=== PATIENT | male | born 1975 | race Caucasian/White ===

== ENCOUNTER 2018-12-28 16:33 | Emergency (ER) | payer MEDICAID ==
[2018-12-28] MEDS ORDERED: LIDOCAINE 2% 10 ML MDV SUBQ STA (16:50)
[2018-12-28] MEDS ORDERED: TETANUS/DIPHTHERIA/PERTUSSIS 0.5 ML SYRINGE IM ONE (17:09)
--- NOTE | 2018-12-28 17:16 | ED Physician Documentation ---
History of Present Illness - Stated complaint Stated Complaint: R RING FINGER INJURY - Chief complaint Chief Complaint: Wound - History obtained from History obtained from: Patient - History of Present Illness Timing: How many days ago (5) Pain level max: 7 Pain level now: 6 - Additonal information Additional information: R ring finger redness and swelling x 5 days. injured changing a tire. Unknown last Td. Pt is right handed. Worse with palpation, nothing makes it lucia.r Review of Systems Constitutional: denies: Fever, Chills Respiratory: denies: Cough GI: denies: Vomiting Musculoskeletal: denies: Neck pain, Back pain PD PAST MEDICAL HISTORY - Past Medical History Past Medical History: No Cardiovascular: None Respiratory: None Neuro: None Endocrine/Autoimmune: None GI: None : None HEENT: None Psych: None Musculoskeletal: None Derm: None - Past Surgical History Past Surgical History: No - Present Medications Home Medications: Ambulatory Orders Medication Instructions Recorded Confirmed Clindamycin HCl [Clindamycin 300MG 300 mg PO Q6H #28 capsule 12/28/18 CAP] - Allergies Allergies/Adverse Reactions: Allergies Allergy/AdvReac Type Severity Reaction Status Date / Time Penicillins Allergy Unknown Verified 12/28/18 16:45 - Social History Does the pt smoke?: Yes Smoking Status: Current every day smoker Does the pt drink ETOH?: No Does the pt have substance abuse?: No - Immunizations Immunizations are current?: No PD ED PE NORMAL - Vitals Vital signs reviewed: Yes - General General: Alert and oriented X 3, No acute distress - HEENT HEENT: Moist mucous membranes - Derm Derm: Warm and dry - Extremities Extremities: Other (Right ring finger - Large paronychia with moderate cellulitis. No tenderness over the pad of the finger) - Neuro Neuro: Alert and oriented X 3 Results - Vitals Vitals: Vital Signs - 24 hr 12/28/18 12/28/18 16:39 17:32 Temperature 37.3 C 36.8 C Heart Rate 132 H 96 Respiratory 18 15 Rate Blood Pressure 148/98 H 132/76 H O2 Saturation 97 100 Oxygen O2 Source Room air - Labs Labs: Microbiology 12/28/18 12:00 Wound Culture - Preliminary Finger - Right Ring Procedures - Abscess I&D (location) R ring finger paronychia Preparation: Confirmed with ultrasound, Alcohol, Lidocaine 2 % (digital block) Incision: Incised with scalpel, Purulent drainage, Culture obtained Other: Pt tolerated well PD MEDICAL DECISION MAKING - ED course Complexity details: considered differential, d/w patient ED course: 43-year-old male with a right ring finger paronychia. This was drained. Tolerated well. Wound culture obtained. The large abscess was incised directly and then the nail fold was elevated. Dressing applied. Will place on antibiotics. Will return in 2 days for wound check. Patient counseled regarding signs and symptoms for which I believe and urgent re-evaluation would be necessary. Patient with good understanding of and agreement to plan and is comfortable going home at this time This document was made in part using voice recognition software. While efforts are made to proofread this document, sound alike and grammatical errors may occur. Tdap given Departure - Departure Disposition: 01 Home, Self Care Clinical Impression: Paronychia of finger of right hand Condition: Good Instructions: ED Fingernail Infec Follow-Up: Sujit Nascimento PA-C [Primary Care Provider] - Prescriptions: Clindamycin HCl [Clindamycin 300MG CAP] 300 mg PO Q6H #28 capsule Comments: Take all antibiotics until gone. Return if you worsen. You can change the dressing tomorrow. Return here on Wednesday for a wound check or follow-up with your doctor on Wednesday for a wound check. Discharge Date/Time: 12/28/18 17:46
[2018-12-28] MEDS ORDERED: CLINDAMYCIN 150 MG CAPSULE PO STA (17:23)
[2018-12-28] MEDS ORDERED: BACITRACIN OINT TOP STA (17:23)
[2018-12-28 17:32] VITALS: BP 132/76
== END 2018-12-28 17:46 | disposition home or self-care (01) ==
LOC: ED 16:33
DX: L03.011 Cellulitis of right finger (principal)
CPT/HCPCS: 10060; 87070; 87077; 87181; 87205; 90471; 90715; 99283; A9270

== ENCOUNTER 2018-12-30 14:30 | Emergency (ER) | payer MEDICAID ==
[2018-12-30] MEDS ORDERED: BACITRACIN OINT TOP STA (14:45)
--- NOTE | 2018-12-30 14:45 | ED Physician Documentation ---
PD HPI WOUND RECHECK - Stated complaint Stated Complaint: FOLLOW UP RT FINGER - Chief complaint Chief Complaint: Wound - Histroy obtained from History obtained from: Patient - History of Present Illness Location: Other (r index finger) Timing - onset: How many days ago (2) Pain level max: 2 Pain level now: 2 Associated symptoms: Redness (decreasing), Swelling (decreasing). No: Fever Recently seen: Emergency Dept (2 days ago and had large paronychia drained) Review of Systems Constitutional: denies: Fever, Chills GI: denies: Nausea, Vomiting, Diarrhea PD PAST MEDICAL HISTORY - Past Medical History Cardiovascular: None Respiratory: None Neuro: None Endocrine/Autoimmune: None GI: None : None HEENT: None Psych: None Musculoskeletal: None Derm: None - Past Surgical History Past Surgical History: No - Present Medications Home Medications: Ambulatory Orders Medication Instructions Recorded Confirmed Clindamycin HCl [Clindamycin 300MG 300 mg PO Q6H #28 capsule 12/28/18 12/30/18 CAP] Sulfamethox/Trimeth 800/160 1 each PO BID #14 tablet 12/30/18 [Bactrim Ds 800/160] - Allergies Allergies/Adverse Reactions: Allergies Allergy/AdvReac Type Severity Reaction Status Date / Time Penicillins Allergy Unknown Verified 12/30/18 14:34 - Social History Does the pt smoke?: Yes Smoking Status: Current every day smoker Does the pt drink ETOH?: No Does the pt have substance abuse?: No - Immunizations Immunizations are current?: No PD ED PE NORMAL - Vitals Vital signs reviewed: Yes - General General: Alert and oriented X 3, No acute distress - HEENT HEENT: Moist mucous membranes - Derm Derm: Warm and dry - Extremities Extremities: Other (R index finger mild erythema, no further drainage around the paronychia. FROM present. NVI. ) - Neuro Neuro: Alert and oriented X 3 Results - Vitals Vitals: Vital Signs - 24 hr 12/30/18 12/30/18 14:33 15:05 Temperature 36.9 C Heart Rate 81 90 Respiratory 14 16 Rate Blood Pressure 133/78 H 100/63 O2 Saturation 99 97 Oxygen O2 Source Room air PD MEDICAL DECISION MAKING - ED course Complexity details: considered differential, d/w patient ED course: Patient with an improving right finger cellulitis. Checked the culture and will change to Bactrim. No further drainage. Patient counseled regarding signs and symptoms for which I believe and urgent re-evaluation would be necessary. Patient with good understanding of and agreement to plan and is comfortable going home at this time This document was made in part using voice recognition software. While efforts are made to proofread this document, sound alike and grammatical errors may occur. Departure - Departure Disposition: 01 Home, Self Care Clinical Impression: Paronychia of finger of right hand Condition: Good Instructions: ED Fingernail Infec Follow-Up: Sujit Nascimento PA-C [Primary Care Provider] - Within 1 week Prescriptions: Sulfamethox/Trimeth 800/160 [Bactrim Ds 800/160] 1 each PO BID #14 tablet Comments: We will change your antibiotic to Bactrim. Return if you worsen. Keep the wound clean. This should continue to improve. Discharge Date/Time: 12/30/18 15:06
[2018-12-30 15:06] VITALS: BP 100/63
== END 2018-12-30 15:06 | disposition home or self-care (01) ==
LOC: ED 14:30
DX: L03.011 Cellulitis of right finger (principal); F17.200 Nicotine dependence, unspecified, uncomplicated
CPT/HCPCS: 99283

== ENCOUNTER 2019-02-21 08:00 | Outpatient (CLI) | payer MEDICAID ==
[2019-02-21 12:18] LABS: BASOPHILS # (AUTO) 0.1 10^3/uL (0.0-0.1); EOSINOPHILS # (AUTO) 0.2 10^3/uL (0.0-0.7); EOSINOPHILS % (AUTO) 3.3 %; HGB - HEMOGLOBIN 15.4 g/dL (14.0-18.0); LYMPHOCYTES # (AUTO) 2.2 10^3/uL (1.5-3.5); LYMPHOCYTES % (AUTO) 30.8 %; MEAN CORPUSCULAR HEMOGLOBIN 31.2 pg (27.0-31.0); MEAN CORPUSCULAR HGB CONC 33.4 g/dL (32.0-36.0); MEAN CORPUSCULAR VOLUME 93.3 fL (80.0-94.0); MEAN PLATELET VOLUME 8.8 fL (7.4-11.4); MONOCYTES # (AUTO) 0.6 10^3/uL (0.0-1.0); MONOCYTES % (AUTO) 8.2 %; NEUTROPHILS # (AUTO) 4.1 10^3/uL (1.5-6.6); PLT - PLATELET COUNT 425 10^3/uL (130-450); RED BLOOD COUNT 4.94 10^6/uL (4.70-6.10); RED CELL DISTRIBUTION WIDTH 12.6 % (12.0-15.0); WHITE BLOOD COUNT 7.3 x10^3/uL (4.8-10.8)
[2019-02-21 12:53] LABS: BUN - BLOOD UREA NITROGEN 12 mg/dL (6-20); CALCIUM 9.3 mg/dL (8.5-10.3); CARBON DIOXIDE - CO2 26 mmol/L (21-32); CHLORIDE 105 mmol/L (101-111); CHOL/HDL RATIO 6.5 (<5.0); CHOLESTEROL 292 mg/dL; CREATININE 1.1 mg/dL (0.6-1.2); GFR - MDRD 72 (>89); GLUCOSE 83 mg/dL (70-100); HDL CHOLESTEROL 45 mg/dL; LDL CHOLESTEROL,CALCULATED 218 mg/dL; LDL/HDL RATIO 4.8 (<3.6); SODIUM 141 mmol/L (135-145); VLDL CHOLESTEROL 29 mg/dL
== END 2019-02-21 23:59 | disposition home or self-care (01) ==
LOC: LAB.WCP 08:00
PROVIDERS: ATTEND Physician Assistant Medical
DX: Z00.00 Encounter for general adult medical examination without abnormal findings (principal); Z72.0 Tobacco use
CPT/HCPCS: 36415; 80048; 80061; 83721; 84443; 85025